=== PATIENT | female | born 2005 | race African-American/Black ===

== ENCOUNTER 2024-04-14 17:37 | Emergency (ER) | payer OTHER ==
[2024-04-14 17:43] VITALS: PULSE 76; RESP 18; BMI 22.7
[2024-04-14 19:43] LABS: BASO % 0.9 % (0-2.0); EOS % 1.5 % (0-4.5); HEMATOCRIT 37.3 % (32.4-45.2); LYMPH % 43.4 % (8-40); MCH 29.4 pg (25.7-33.7); MCHC 34.9 g/dl (32.0-36.0); MEAN CELL VOLUME 84.1 fl (80-96); MEAN PLT VOLUME 8.7 fl (7.5-11.1); MONO % 5.7 % (3.8-10.2); NEUT % 48.5 % (42.8-82.8); PLATELET COUNT 334 10^3/uL (134-434); RBC 4.43 M/mm3 (3.60-5.2); WHITE BLOOD COUNT 10.2 K/mm3 (4.0-10.0)
[2024-04-14 19:45] LABS: PH,URINE 8.5 (5.0-8.0); URINE APPEARANCE Clear; URINE BILIRUBIN Negative (NEGATIVE); URINE COLOR Yellow; URINE GLUCOSE (UA) Negative (NEGATIVE); URINE KETONE Negative (NEGATIVE); URINE LEUK ESTERASE Negative (NEGATIVE); URINE NITRITE Negative (NEGATIVE); URINE PROTEIN Negative (NEGATIVE); URINE UROBILINOGEN 0.2 mg/dL (0.2-1.0)
[2024-04-14 20:01] LABS: POTASSIUM 4.3 mmol/L (3.5-5.1)
[2024-04-14 20:04] LABS: ALBUMIN 4.2 g/dl (3.4-5.0); BLOOD UREA NITROGEN 6.5 mg/dL (7-18); CALCIUM 10.1 mg/dL (8.5-10.1)
[2024-04-14 20:06] LABS: CREATININE 0.9 mg/dL (0.55-1.3)
[2024-04-14 20:08] LABS: BILIRUBIN,TOTAL 0.5 mg/dL (0.2-1); TOT PROT 7.8 g/dl (6.4-8.2)
[2024-04-14 20:08] LABS: EPI CELLS 5 /uL (0-25.1); HYALINE CASTS 1 /uL (0-3.1); URINE BACTERIA 67 /uL (0-1359); URINE RBC 6 /uL (0-23.9); URINE WBC 8 /uL (0-25.8)
[2024-04-14] MEDS ORDERED: DOXYCYCLINE HYCLATE 100 MG CAPSULE PO ONE (21:13)
[2024-04-14] MEDS ORDERED: cefTRIAXone SODIUM 1 GM VIAL ONE (21:13)
[2024-04-14] MEDS: DOXYCYCLINE HYCLATE 100 MG CAPSULE PO ONE (22:04)
[2024-04-14 22:29] VITALS: BP 114/65; TEMP 98.2
== END 2024-04-14 22:28 | disposition home or self-care (01) ==
LOC: JER 17:37
DX: N93.9 Abnormal uterine and vaginal bleeding, unspecified (principal); Z11.3 Encounter for screening for infections with a predominantly sexual mode of transmission; R10.30 Lower abdominal pain, unspecified; N83.201 Unspecified ovarian cyst, right side
CPT/HCPCS: 36415; 76830-TC; 80053; 81003; 84703; 85025; 87070; 87086; 87205; 87491; 87591; 87661; 99284-25